=== PATIENT | male | born 1975 | race Caucasian/White ===

== ENCOUNTER → 2020-09-27 | Outpatient (CLI) | payer OTHER ==
[2020-09-27 17:28] LABS: ALANINE AMINOTRANSFERASE 113 U/L (12-78); ALBUMIN 3.8 g/dL (3.4-5.0); ANION GAP 6 mmol/L (5-15); CALCIUM 8.9 mg/dL (8.5-10.1); CHLORIDE 108 mmol/L (98-107); CHOLESTEROL, TOTAL 180 mg/dL (140-239); CREATININE 1.11 mg/dL (0.7-1.3)
[2020-09-27 17:31] LABS: BASOPHILS % (AUTO) 1 % (0-1); EOSINOPHILS % (AUTO) 2 % (1-7); LYMPHOCYTES % (AUTO) 39 % (22-44); MEAN CORPUSCULAR HEMOGLOBIN 28.3 pg (27.5-34.5); MEAN CORPUSCULAR HGB CONC 33.7 g/dL (33.2-36.2); MEAN PLATELET VOLUME 7.4 fL (7.4-10.4); MONOCYTES % (AUTO) 9 % (2-9); NEUTROPHILS % (AUTO) 49 % (42-75); PLATELET COUNT 305 x10^3/uL (130-400); RED BLOOD COUNT 5.39 x10^6/uL (4.38-5.82); RED CELL DISTRIBUTION WIDTH 13.9 % (9.4-14.8)
[2020-09-27 17:39] LABS: ALKALINE PHOSPHATASE 92 U/L (45-117); BILIRUBIN,TOTAL 0.4 mg/dL (0.2-1.0); CHOL/HDL RATIO 5.8; HDL CHOL % 17 % (26-37); HDL CHOLESTEROL (DIRECT) 31 mg/dL (40-60); LDL CHOLESTEROL,CALCULATED 75 mg/dL (54-169); LDL/HDL RATIO 2.4 (0.5-3.0); TOTAL PROTEIN 7.7 g/dL (6.4-8.2); TRIGLYCERIDES 371 mg/dL (50-200); VLDL CHOLESTEROL 74 mg/dL (0-25)
== END | disposition home or self-care (01) ==
LOC: LAB 16:57
PROVIDERS: ATTEND Nurse Practitioner Family
DX: Z00.01 Encounter for general adult medical examination with abnormal findings (principal); F17.200 Nicotine dependence, unspecified, uncomplicated; R63.5 Abnormal weight gain
CPT/HCPCS: 36415; 80053; 80061; 82306; 84443; 85025